=== PATIENT | male | born 1975 | race Caucasian/White ===

== ENCOUNTER 2022-10-25 22:02 | Emergency (ER) | payer OTHER ==
[~2022-10-25] VITALS: Ht 175.3 cm; Wt 115.0 kg
[2022-10-25 23:00] VITALS: BP 103/58
[2022-10-25 23:26] LABS: Basophils # (auto) 0.1 10 ^3/uL (0-0.2); Basophils % (auto) 0.9 % (0.0-2.0); Eosinophils # (auto) 0.2 10 ^3/uL (0-0.8); Eosinophils % (auto) 2.7 % (0.0-7.0); Hematocrit 43.9 % (41.0-53.0); Hemoglobin 15.3 g/dL (13.5-17.5); Lymphocytes % (auto) 39.5 % (10.0-50.0); Mean Corpuscular Hemoglobin 30.4 pg (28.0-32.0); Mean Corpuscular Hgb Conc. 34.7 g/dL (32.0-36.0); Mean Corpuscular Volume 87.5 fL (80.0-100.0); Monocytes # (auto) 0.6 10 ^3/uL (0-1.3); Monocytes % (auto) 7.7 % (0.0-12.0); Neutrophils # (auto) 3.8 10 ^3/uL (1.6-8.6); Neutrophils % (auto) 49.2 % (37.0-80.0); Nucleated Red Blood Cells % 0.4 %; Red Blood Cells 5.02 10^6/uL (4.5-5.90); Red Cell Distribution Width 12.7 % (11.8-14.3); White Blood Cell 7.7 10^3/uL (4.4-10.8)
[2022-10-25 23:31] LABS: Albumin 3.9 g/dL (3.4-5.0); BUN/Creatinine Ratio 19.3 (10.0-20.0); Calcium 9.2 mg/dL (8.5-10.1)
[2022-10-25 23:34] LABS: Bilirubin, Total 0.4 mg/dL (0.2-1.0); Total Protein 8.3 g/dL (6.4-8.2)
== END 2022-10-26 00:15 ==
LOC: ER 22:02 → EEVIPCON 22:02 → ER 10-26 00:15
DX: F41.9 Anxiety disorder, unspecified (principal)
CPT/HCPCS: 36415; 80053; 85025; 93005